=== PATIENT | female | born 1955 | race Caucasian/White ===

== ENCOUNTER 2021-10-30 21:22 | Emergency (ER) | payer SELFPAY ==
[~2021-10-30] VITALS: Ht 165.1 cm; Wt 59.1 kg
[2021-10-30 22:04] LABS: COVID AG,FIA SOURCE NASOPHARYNGEAL
[2021-10-30 23:22] VITALS: BP 124/72
== END 2021-10-30 23:00 | disposition home or self-care (01) ==
LOC: EMS 21:23
DX: U07.1 COVID-19 (principal)
CPT/HCPCS: 99283

== ENCOUNTER 2021-11-01 18:18 | Emergency (ER) | payer OTHER ==
[~2021-11-01] VITALS: Ht 149.9 cm; Wt 59.1 kg
[2021-11-01 18:58] VITALS: BP 119/77
[2021-11-01 19:31] LABS: BASOPHILS % (AUTO) 0.6 % (0.0-2.0); EOSINOPHILS % (AUTO) 0.2 % (1.0-6.0); HEMATOCRIT 38.7 % (36-46); HEMOGLOBIN 12.9 g/dL (12.0-16.0); LYMPHOCYTES # (AUTO) 1.6 K/uL (1.0-4.8); LYMPHOCYTES % (AUTO) 37.4 % (22.0-44.0); MEAN CORPUSCULAR HGB CONC 33.5 G/dL (31.0-37.0); MEAN CORPUSCULAR VOLUME 87 fL (80-100); MONOCYTES # (AUTO) 0.5 K/uL (0.1-1.0); NEUTROPHILS # (AUTO) 2.1 K/uL (1.8-7.7); NEUTROPHILS % (AUTO) 50.8 % (40.0-70.0); PLATELET COUNT (AUTO) 220 K/uL (150-450); RED BLOOD CELL COUNT(AUTO) 4.47 MIL/uL (4.00-5.20); RED CELL DISTRIBUTION WIDTH 15.3 % (11.5-14.5)
[2021-11-01 19:40] LABS: ANION GAP 10 mmol/L (8-16); CALCIUM, TOTAL 8.8 mg/dL (8.8-10.5); CARBON DIOXIDE 29 mmol/L (22-29); CHLORIDE 101 mmol/L (98-107); CREATININE 0.76 mg/dL (0.60-1.30); GLOMERULAR FILTR. RATE CALC > 60 mL/min (>60); GLUCOSE,RANDOM 134 mg/dL (70-110); POTASSIUM 3.7 mmol/L (3.5-5.1); SODIUM SERUM 140 mmol/L (136-145); UREA NITROGEN, BLOOD 13 mg/dL (7-18)
[2021-11-01 19:46] LABS: ALANINE AMINOTRANSFERASE 21 U/L (12-78); ALBUMIN 3.9 g/dL (3.4-5.0); ALKALINE PHOSPHATASE 67 U/L (46-116); ASPARTATE AMINOTRANSFERASE 20 U/L (15-37); BILIRUBIN,TOTAL 0.3 mg/dL (0.1-1.0)
[2021-11-01 20:04] LABS: B-TYPE NATRIURETIC PEPTIDE 11 pg/mL (0-100)
== END 2021-11-01 22:18 | disposition home or self-care (01) ==
LOC: EMS 18:20
DX: U07.1 COVID-19 (principal); E11.9 Type 2 diabetes mellitus without complications
CPT/HCPCS: 71045; 80053; 83880; 84484; 85025; 99284; 36415-L1; 36415-TC

== ENCOUNTER 2021-11-09 06:46 | Emergency (ER) | payer OTHER ==
[~2021-11-09] VITALS: Ht 160 cm; Wt 59.1 kg
[2021-11-09 08:53] LABS: COVID AG,FIA SOURCE NASAL SWAB
[2021-11-09 09:34] VITALS: BP 137/64
== END 2021-11-09 10:12 | disposition home or self-care (01) ==
LOC: EMS 06:49
DX: Z20.822 Contact with and (suspected) exposure to COVID-19 (principal); Z86.16 Personal history of COVID-19; E11.9 Type 2 diabetes mellitus without complications
CPT/HCPCS: 99283